=== PATIENT | female | born 1990 | race Caucasian/White ===

== ENCOUNTER → 2019-06-13 | Outpatient (CLI) | payer OTHER ==
[~2019-06-13] MED LIST: PREN-8 PO
== END ==
LOC: LABNPT 15:30
PROVIDERS: ATTEND Obstetrics & Gynecology
DX: O14.03 Mild to moderate pre-eclampsia, third trimester (principal)
CPT/HCPCS: 82570; 84156

== ENCOUNTER 2019-06-15 08:35 | Outpatient (CLI) | payer OTHER ==
[~2019-06-15] VITALS: Ht 170.2 cm; Wt 89.5 kg
[2019-06-15] MEDS ORDERED: PREN-8 PO (12:58)
== END 2019-06-15 13:14 | disposition home or self-care (01) ==
LOC: PREOP 08:35
PROVIDERS: ATTEND Obstetrics & Gynecology
DX: Z01.818 Encounter for other preprocedural examination (principal)

== ENCOUNTER 2019-06-19 09:12 | Inpatient (IN) | payer OTHER ==
[~2019-06-19] VITALS: Ht 170 cm; Wt 87.8 kg
[2019-06-19] VITALS (8 sets, daily range): BP systolic 102–144; BP diastolic 53–84
--- NOTE | 2019-06-19 10:00 | NUR ---
RAFAEL BLANCA presented to unit via ambulation from home, accompanied by , for section for breech position. RAFAEL BLANCA weighed, gowned, voided, and to bed. EFHM and TOCO applied, VS taken. RAFAEL BLANCA oriented to bed controls, call light, TV, heat, and A/C controls.
[2019-06-19] MEDS ORDERED: LACTATED RINGERS 1,000 ML IV ONE (10:13)
--- OUTSIDE RECORDS SUMMARY | 2019-06-19 10:24 | XMS REPORT | Continuity of Care Document ---
Author Organization Unknown Address Unknown Phone Unavailable Allergies Active Description Code Type Severity Reaction Onset Reported/Identified Relationship to Patient Clinical Status Yes No Known Drug Allergies [id number] Drug Allergy Unknown N/A 06/15/2019 Medications There is no data. Problems Date Dx Coded Attending Type Code Diagnosis Diagnosed By 06/14/2019 KATY MEDEIROS, KEHINDE Marvin Ot O14.03 MILD TO MODERATE PRE-ECLAMPSIA, THIRD TR 06/14/2019 KATY MEDEIROS, KEHINDE Marvin Ot O14.03 MILD TO MODERATE PRE-ECLAMPSIA, THIRD TR 06/15/2019 KATY MEDEIROS, KEHINDE Marvin Ot O14.03 MILD TO MODERATE PRE-ECLAMPSIA, THIRD TR 06/15/2019 KATY MEDEIROS, KEHINDE Marvin Ot O14.03 MILD TO MODERATE PRE-ECLAMPSIA, THIRD TR 06/15/2019 KATY MEDEIROS, KEHINDE Marvin Ot Z01.818 ENCOUNTER FOR OTHER PREPROCEDURAL EXAMIN Procedures There is no data. Results Test Result Range Urine protein/creatinine mass ratio - 15:30 Urine protein measurement (mass/volume) 18 mg/dL 6-12 Urine creatinine measurement (mass/volume) 93 mg/d L 30-125 Urine protein/creatinine mass ratio 0.19 NRG Encounters ACCT No. Visit Date/Time Discharge Status Pt. Type Provider Facility Loc./Unit Complaint [id number] 05/10/2019 09:17:10 05/10/2019 23:59: 59 [facility] Outpatient Monty Arroyo [id number] 08/30/2018 09:05:18 08/30/2018 23:59: 59 [facility] Outpatient Monty Arroyo [id number] 07/18/2018 09:33:53 07/18/2018 23:59: 59 [facility] Outpatient Monty Arroyo [id number] 06/11/2018 12:37:08 06/11/2018 23:59: 59 [facility] Outpatient Dylon Perezmy Chica [id number] 02/10/2018 14:59:52 02/10/2018 23:59: 59 [facility] Outpatient HetlingerMonty [id number] 09/13/2017 10:05:38 09/13/2017 23:59: 59 [facility] Outpatient Chantel Gabriel [id number] 02/24/2017 11:19:18 02/24/2017 23:59: 59 [facility] Outpatient HetlingerMonty [id number] 10/08/2016 09:10:12 10/08/2016 23:59: 59 [facility] Outpatient HetlingerMonty [id number] 09/25/2016 11:59:36 09/25/2016 23:59: 59 [facility] Outpatient HetlingerMonty [id number] 09/04/2016 10:05:48 09/04/2016 23:59: 59 [facility] Outpatient HetlingerMonty [id number] 03/18/2016 10:01:36 03/18/2016 23:59: 59 [facility] Outpatient HetlingerMonty [id number] 03/06/2016 12:18:07 03/06/2016 23:59: 59 [facility] Outpatient Chantel Gabriel [id number] 03/04/2016 17:21:28 03/04/2016 23:59: 59 [facility] Outpatient Cem Burnham [id number] 03/02/2016 15:28:46 03/02/2016 23:59: 59 [facility] Outpatient Chantel Gabriel [id number] 12/16/2015 12:32:11 12/16/2015 23:59: 59 [facility] Outpatient HetlingerMonty [id number] 11/08/2015 09:52:48 11/08/2015 23:59: 59 [facility] Outpatient Hetlinger Monty [id number] 10/07/2015 17:31:45 10/07/2015 23:59: 59 [facility] Outpatient Cem Burnham [id number] 06/03/2015 15:20:46 06/03/2015 23:59: 59 [facility] Outpatient Hetlinger Monty [id number] 04/09/2015 16:38:57 04/09/2015 23:59: 59 [facility] Outpatient HetlingerMonty [id number] 02/05/2015 16:58:38 02/05/2015 23:59: 59 [facility] Outpatient Cem Burnham [id number] 11/29/2014 09:47:13 11/29/2014 23:59: 59 [facility] Outpatient Chantel Gabriel [id number] 11/05/2014 22:26:44 11/05/2014 23:59: 59 [facility] Outpatient ChachaCem [id number] 11/05/2014 22:05:56 11/05/2014 23:59: 59 [facility] Outpatient Frandy Peoples Monty [id number] 06/26/2014 14:52:42 06/26/2014 23:59: 59 [facility] Outpatient BurnhamCem [id number] 04/17/2014 09:13:47 04/17/2014 23:59: 59 [facility] Outpatient Cem Burnham [id number] 12/28/2013 16:05:46 12/28/2013 23:59: 59 [facility] Outpatient Lon Marroquin [id number] 12/14/2013 16:08:10 12/14/2013 23:59: 59 [facility] Outpatient DelfinaMonty castro [id number] 10/09/2013 10:04:26 10/09/2013 23:59: 59 [facility] Outpatient Delfinaalojin Monty [id number] 07/10/2013 16:05:29 07/10/2013 23:59: 59 [facility] Outpatient DelfinaMonty castro [id number] 04/18/2013 09:50:34 04/18/2013 23:59: 59 [facility] Outpatient Dina Monty [id number] 06/15/2019 08:35:00 020 13:14:00 DIS Outpatient KEHINDE BURNS MD [facility] PREOP BREECH [id number] 06/13/2019 15:30:00 020 23:59:59 C[facility] Outpatient KEHINDE BURNS MD [facility] LABNPT [id number] 06/19/2019 12:00:00 P EN Preadmit KEHINDE BURNS MD
--- NOTE | 2019-06-19 10:30 | NUR ---
Preparing for OR. IV started. See intervention. Contractions every 5-6 min, 100 sec long, mild to palpation. FHT 140-150 baseline, mod variability, accels noted. No decels. Consent obtained. Preop teaching done.
[2019-06-19] MEDS ORDERED: FAMOTIDINE 20MG/2ML IV (PEPCID) IV ONE (11:00)
[2019-06-19] MEDS ORDERED: ceFAZolin 2 GM IV Premixed 50 ML IV ONE (11:00)
[2019-06-19] MEDS ORDERED: METOCLOPRAMIDE INJ 10 MG/2 ML (REGLAN) IV ONE (11:00)
[2019-06-19] MEDS ORDERED: metroNIDAZOLE 500MG/100ML IVPB 100 ML IV ONE (11:00)
[2019-06-19] MEDS ORDERED: LACTATED RINGERS 1,000 ML IV SCH ×2 (11:00)
[2019-06-19] MEDS ORDERED: CITRIC ACID/SOB CIT (BICITRA) 30 ML UDC PO ONE (11:00)
--- NOTE | 2019-06-19 11:00 | NUR ---
Anesthesia here, talking with patient.
[2019-06-19 11:06] LABS: BASOPHILS % (AUTO) 0 % (0-10); EOSINOPHILS # (AUTO) 0.1 10^3/uL (0.0-0.3); EOSINOPHILS % (AUTO) 1 % (0-10); HEMATOCRIT 41 % (35-52); HEMOGLOBIN 13.7 G/DL (11.5-16.0); LYMPHOCYTES # (AUTO) 1.7 X 10^3 (1.0-4.0); LYMPHOCYTES % (AUTO) 17 % (12-44); MEAN CORPUSCULAR HEMOGLOBIN 30 PG (25-34); MEAN CORPUSCULAR HGB CONC 34 G/DL (32-36); MEAN CORPUSCULAR VOLUME 89 FL (80-99); MEAN PLATELET VOLUME 10.4 FL (7.4-10.4); MONOCYTES # (AUTO) 0.7 X 10^3 (0.0-1.0); MONOCYTES % (AUTO) 7 % (0-12); NEUTROPHILS # (AUTO) 7.6 X 10^3 (1.8-7.8); NEUTROPHILS % (AUTO) 75 % (42-75); PLATELET COUNT 198 10^3/uL (130-400); RED CELL DISTRIBUTION WIDTH 13.3 % (10.0-14.5); WHITE BLOOD COUNT 10.1 10^3/uL (4.3-11.0)
[2019-06-19] MEDS ORDERED: ceFAZolin 2 GM IV Premixed 50 ML ONE (11:10)
[2019-06-19] MEDS ORDERED: metroNIDAZOLE 500MG/100ML IVPB 100 ML ONE (11:10)
[2019-06-19] MEDS ORDERED: ONDANSETRON 4 MG/2 ML (SDV) Z0FRAN ONE (11:10)
[2019-06-19] MEDS ORDERED: fentaNYL INJECTION 100 MCG/2 ML AMP ONE (11:11)
[2019-06-19] MEDS ORDERED: OXYTOCIN PRE-MIX DRIP 1,000 ML IV ONE (11:14)
--- NOTE | 2019-06-19 11:20 | NUR ---
Pre op meds given
[2019-06-19] MEDS ORDERED: OXYTOCIN PRE-MIX DRIP 500 ML IV SCH (11:27)
[2019-06-19] MEDS ORDERED: D5 LR IV SOLUTION 1,000 ML IV SCH (11:27)
--- NOTE | 2019-06-19 11:27 | History & Physical ---
History and Physical Date Seen by Provider: Jun 19, 2019 Time Seen by Provider: 11:25 This patient is a 28-year-old 1 white female with a due date of June 26, 2019 percent now at 39 weeks gestation with a breech presentation. She is a dmitted now for primary delivery secondary to the breech presentation. Her GBS culture done after 35 weeks gestation was negative. She denies rupture membranes or bleeding. She's had no other problems with this . Allergies none Medications are vitamins Medical social and surgical histories are per the antepartum record HEENT exam is normal Neck is no lymphadenopathy no thyromegaly Abdomen is gravid soft nontender nondistended Extremities show no clubbing cyanosis. There is no Homans sign. Pelvic exam is deferred Laboratory Tests 06/19/19 10:45 Assessment and plan term at 39 weeks' gestation with breech presentation. Patient is admitted now for primary delivery. Surgical risk complication recovering follow-up have been fluids us. Patient is ready to proceed. 39 weeks gestation with breech presentation Allergies and Home Medications Allergies Coded Allergies: No Known Drug Allergies (Unverified , 06/15/19) Home Medications Vit W-Ca,Fe,FA(<1 mg) 1 Each Tablet, 1 EACH PO DAILY, (Reported) Patient Home Medication List Home Medication List Reviewed: Yes KEHINDE BURNS MD Jun 19, 2019 11:27
[2019-06-19] MEDS ORDERED: TETANUS,DIPTH,PERTUSS P/F (BOOSTRIX) 0.5 ML VIAL IM ONE (11:30)
[2019-06-19] MEDS ORDERED: ONDANSETRON 4 MG/2 ML (SDV) Z0FRAN IVP PRN (11:30)
[2019-06-19] MEDS ORDERED: MEASLES,MUMPS,RUBELLA 1 EA INJ SC ONE (11:30)
[2019-06-19] MEDS ORDERED: DCS100C PO (11:31)
[2019-06-19] MEDS ORDERED: IBUP-1780 PO (11:31)
[2019-06-19] MEDS ORDERED: OXYC1TAB12 PO (11:31)
--- NOTE | 2019-06-19 11:31 | Discharge Inst-Surgical ---
Discharge Inst-Surgical Depart Medication/Instructions New, Converted or Re-Newed RX: RX on Chart Consults/Follow Up Patient Instructions: As directed Orders & Referrals Follow Up Appt: RTC 1 week for incision check. Call to make follow up appt. for patient in 4 weeks. Wound Care: Remove german, apply benzoin and steri strips. Activity Per routine post instructions. Please call in RX to patient pharmacy. Diet as tolerated Patient may shower or tub bathe as desired. Continue home meds Activity Activity as Tolerated: No Diet Discharge Diet: No Restrictions KEHINDE BURNS MD Jun 19, 2019 11:31
--- NOTE | 2019-06-19 11:33 | NUR ---
TRAVIS reyes. Surgery personnel in room. Ambulatory to OR.
[2019-06-19] MEDS ORDERED: METHYLERGONOVINE 0.2 MG/ML (METHERGINE) AMP ONE (12:00)
[2019-06-19] MEDS ORDERED: BUPIVACAINE 0.5% 30 ML (SENSORCAINE) VIAL ONE (12:19)
[2019-06-19] MEDS: KETOROLAC 30 MG/ML VIAL IVP SCH ×2 (13:48→20:20)
--- NOTE | 2019-06-19 14:07 | OPERATIVE REPORT ---
DATE OF SERVICE: 06/19/2019 PREOPERATIVE DIAGNOSIS: Term at 39 weeks' gestation with breech presentation. 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 OPERATIVE PROCEDURE: Primary low transverse delivery of a viable male infant with Apgars of 8 and 9 at 1 and 5 minutes respectively, weight of 7 pounds 8 ounces. Cord blood gas of 7.35 and a time of 11:54. OPERATIVE DESCRIPTION: With the patient in supine position under satisfactory spinal analgesia, she was repositioned in dorsal lithotomy position and prepped and draped in the usual fashion for abdominal surgery. Grimaldo catheter was placed in the urinary bladder. A Pfannenstiel incision was made through the skin with scalpel, the patient's abdomen entered in the usual manner. Bladder retractor placed into position. Clean scalpel used to make a 4 cm hysterotomy incision transversely across the lower uterine segment. A vigorous viable male was delivered by breech extraction from a double footling breech presentation. The was bulb suctioned on delivery. Umbilical cord was doubly clamped and cut and the passed to the pediatric nurse in attendance for delivery. Cord bloods were obtained. The placenta delivered spontaneously Miller. It was normal with a 3-vessel cord. The uterus was exteriorized, anterior wiped clean with a wet laparotomy sponge. Uterine incision closed with a running locked suture of 2-0 Vicryl. Hemostasis was satisfactory. The uterus was little bit boggy, but the bleeding had been fairly minimal. The uterus was oriented towards the patient's left side. There was no obvious round ligament nor fallopian tube from the uterus. 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 The left tube and ovary were normal. There was a mass on the right pelvic sidewall, suspicious for the ovary, but it seemed to be involved with and may be underlying the a portion of the round ligament. It was not exposed to the peritoneal cavity. There was approximately 1.5 x 3 cm nodular mass in the area that the ovary should have been found. No fimbria were identified. The blood clot and debris was removed from the abdominal cavity. The uterus was returned to abdominal cavity. Sponge and needle counts correct and hemostasis now assured. The anterior parietal peritoneum was closed with running suture of 2-0 Vicryl. Rectus muscles were closed with that suture as well. The rectus fascia was closed with 2-0 Vicryl, subcutaneous tissue was closed with 2-0 Vicryl and the skin was stapled. Sponge and needle counts were correct on completion of the procedure. Estimated blood loss was around 500 mL. The patient tolerated the procedure well and was transferred to the recovery room in stable condition. The infant had been taken stable to the full term nursery under the care of the pediatric nurse. Job ID: [id number] DocumentID: [id number] Dictated Date: 06/19/2019 12:47:54 Park Interpretive Ranger Date: 06/19/2019 14:07:02 Dictated By: KEHINDE BURNS MD
--- NOTE | 2019-06-19 15:30 | NUR ---
VSS. Pad changed x 1 with moderate rubra. FF @ u. No urge to void yet. Minimal pain.
[2019-06-19] MEDS: oxyCODONE/APAP 10/325MG (PERCOCET 10) TABLET PO PRN (16:48)
[2019-06-19] MEDS: DOCUSATE SODIUM 100 MG (COLACE) CAP PO SCH (20:20)
[2019-06-19] MEDS ORDERED: DOCUSATE SODIUM 100 MG (COLACE) CAP PO SCH (21:00)
[2019-06-20 00:02] VITALS: BP 115/74
[2019-06-20] MEDS: oxyCODONE/APAP 10/325MG (PERCOCET 10) TABLET PO PRN ×5 (00:02→21:04)
[2019-06-20] MEDS: KETOROLAC 30 MG/ML VIAL IVP SCH (02:08)
[2019-06-20 04:10] VITALS: BP 119/74
[2019-06-20] MEDS ORDERED: IBUPROFEN 800 MG (MOTRIN) TAB PO ONE (07:49)
--- NOTE | 2019-06-20 08:00 | NUR ---
DR. BURNS HERE TO SEE PT.
--- NOTE | 2019-06-20 08:02 | Progress Note ---
Standard Progress Note Progress Notes/Assess & Plan Date Seen by a Provider: Jun 20, 2019 Time Seen by a Provider: 08:01 Progress/Assessment & Plan This patient is without complaint. She is ambulating, voiding, tolerating oral intake well and has good pain control. Patient denies chest pain, denies shortness of breath, denies nausea vomiting, and denies headache. Vital Signs Date Time Temp Pulse Resp B/P (MAP) Pulse Ox O2 Delivery O2 Flow Rate FiO2 06/20/19 04:10 36.4 60 18 119/74 (89) 100 Room Air 06/20/19 00:02 36.3 59 18 115/74 (88) 99 Room Air 06/19/19 20:20 36.5 56 18 113/53 (73) 98 Room Air 06/19/19 14:25 37.0 62 16 131/76 (94) 99 Room Air 06/19/19 13:15 37 16 144/73 (96) 99 Room Air 06/19/19 13:15 Room Air 06/19/19 13:00 Room Air 06/19/19 13:00 36.6 16 103/65 (78) 100 Room Air 06/19/19 12:45 36.7 16 129/63 (85) 100 Room Air 06/19/19 12:45 Room Air 06/19/19 12:35 36.6 16 102/65 (77) 100 Room Air 06/19/19 12:21 Room Air 06/19/19 12:21 36.4 16 117/70 (86) 99 Room Air 06/19/19 10:30 36.5 77 18 100 Room Air I & O 06/20/19 07:00 Intake Total 3800 ml Output Total 2250 ml Balance 1550 ml Vital signs are stable. Patient is afebrile. Fundus is firm below the umbilicus and nontender. Incision is clean dry and intact. Extremities show no clubbing cyanosis. There is no Homans sign. Assessment and plan postoperative day number 1 status post primary delivery at 39 weeks gestation due to breech presentation. Patient is doing well and will have routine convalescence care KEHINDE BURNS MD Jun 20, 2019 08:02
--- NOTE | 2019-06-20 08:45 | NUR ---
A.M. ASSESSMENT COMPLETED. DOING WELL. CARING FOR IN ROOM.
[2019-06-20] MEDS: IBUPROFEN 800 MG (MOTRIN) TAB PO SCH ×3 (08:55→21:04)
[2019-06-20] MEDS: DOCUSATE SODIUM 100 MG (COLACE) CAP PO SCH ×2 (09:00→21:03)
--- NOTE | 2019-06-20 09:43 | Anesthesia-Regional Post-Op ---
Regional Patient Condition Mental Status: Alert, Oriented x3 Circulation: Same as Pre-Op Headache: Absent Sensation: Full Recovery Motor Block: Absent Post Op Complications Complications None Follow Up Care/Instructions Patient Instructions None needed. Anesthesia/Patient Condition Patient is doing well, no complaints, stable vital signs, no apparent adverse anesthesia problems. No complications reported per nursing. ANDRZEJ ESCOBEDO CRNA Jun 20, 2019 09:43
--- NOTE | 2019-06-20 09:45 | NUR ---
RT NOTIFIED OF PT NEEDING INCENTIVE SPIROMETRY.
--- NOTE | 2019-06-20 11:48 | NUR ---
PERCOCET 1 TAB P.O. FOR C/O ABD PAIN WITH CRAMPING.
--- NOTE | 2019-06-20 12:30 | NUR ---
CONTINUES TO DO WELL. S.O. AT BEDSIDE. WITHOUT PROBLEMS. HAS BEEN IN TO SEE PT.
--- NOTE | 2019-06-20 13:30 | NUR ---
AMBULATING IN THE HALLWAY. MOVES WELL.
--- NOTE | 2019-06-20 15:00 | NUR ---
REPORT GIVEN TO Oj HOOPER RN.
[2019-06-20 15:40] VITALS: BP 122/77
[2019-06-20 21:04] VITALS: BP 127/85
[2019-06-21 02:48] VITALS: BP 124/84
[2019-06-21] MEDS: IBUPROFEN 800 MG (MOTRIN) TAB PO SCH ×2 (02:48→08:34)
[2019-06-21] MEDS: oxyCODONE/APAP 10/325MG (PERCOCET 10) TABLET PO PRN ×2 (02:48→08:02)
--- NOTE | 2019-06-21 07:55 | NUR ---
DR. BURNS HERE TO SEE PT.
--- NOTE | 2019-06-21 07:59 | Progress Note ---
Standard Progress Note Progress Notes/Assess & Plan Date Seen by a Provider: Jun 21, 2019 Time Seen by a Provider: 07:57 Progress/Assessment & Plan This patient is without complaint. She is ambulating, voiding, tolerating oral intake well and has good pain control. Patient denies chest pain, denies shortness of breath, denies nausea vomiting, and denies headache. Vital Signs Date Time Temp Pulse Resp B/P (MAP) Pulse Ox O2 Delivery O2 Flow Rate FiO2 06/20/19 04:10 36.4 60 18 119/74 (89) 100 Room Air 06/20/19 00:02 36.3 59 18 115/74 (88) 99 Room Air 06/19/19 20:20 36.5 56 18 113/53 (73) 98 Room Air 06/19/19 14:25 37.0 62 16 131/76 (94) 99 Room Air 06/19/19 13:15 37 16 144/73 (96) 99 Room Air 06/19/19 13:15 Room Air 06/19/19 13:00 Room Air 06/19/19 13:00 36.6 16 103/65 (78) 100 Room Air 06/19/19 12:45 36.7 16 129/63 (85) 100 Room Air 06/19/19 12:45 Room Air 06/19/19 12:35 36.6 16 102/65 (77) 100 Room Air 06/19/19 12:21 Room Air 06/19/19 12:21 36.4 16 117/70 (86) 99 Room Air 06/19/19 10:30 36.5 77 18 100 Room Air I & O 06/20/19 07:00 Intake Total 3800 ml Output Total 2250 ml Balance 1550 ml Vital signs are stable. Patient is afebrile. Fundus is firm below the umbilicus and nontender. Incision is clean dry and intact. Extremities show no clubbing cyanosis. There is no Homans sign. Assessment and plan postoperative day number 1 status post primary delivery at 39 weeks gestation due to breech presentation. Patient is doing well and will have routine convalescence care June 21, 2019 Patient is without complaint. She is ambulating, voiding, tolerating oral intake well has good pain control. Patient is requesting discharge home. Vital Signs Date Time Temp Pulse Resp B/P (MAP) Pulse Ox O2 Delivery O2 Flow Rate FiO2 3/25/20 02:48 36.2 66 18 124/84 (97) 100 Room Air 06/20/19 21:04 36.4 92 18 127/85 (99) 100 Room Air 06/20/19 15:40 36.1 72 18 122/77 (92) 100 Room Air 06/20/19 09:26 Room Air I & O 06/21/19 07:00 Intake Total 2920 ml Output Total 2000 ml Balance 920 ml Vital signs are stable. Patient is afebrile. The abdomen is benign. The fundus is firm below the umbilicus nontender. The surgical incision is clean dry and intact. Extreme show no clubbing cyanosis. There is no Homans sign. Assessment and plan postoperative day number 2 status post primary delivery at 39 weeks gestation secondary to breech presentation. Patient was found to have a left unicornuate uterus with rudimentary right horn and likely rudimentary right ovary. Patient will be discharged home with follow-up in clinic Final Diagnosis 39 week primary delivery KHEINDE BURNS MD Jun 21, 2019 07:59
[2019-06-21] MEDS: DOCUSATE SODIUM 100 MG (COLACE) CAP PO SCH (08:34)
[2019-06-21 08:36] VITALS: BP 143/70
--- NOTE | 2019-06-21 08:54 | NUR ---
VS OBTAINED. MEDS GIVEN PO; SEE EMAR FOR FURTHER. INITIAL SHIFT ASSESSMENT COMPLETED; SEE INTERVENTION FOR FURTHER. MARQUIS REMOVED. BENZOIN AND STERI STRIPS APPLIED. DISCHARGE PAPERS PROVIDED AND REVIEWED WITH PT, PT VERBALIZES UNDERSTANDING. NO QUESTIONS VOICED. PAPER SIGNED. RX AND FOLLOW UP APPOINTMENT CARDS PROVIDED AT THIS TIME. NO NEEDS VOICED. CALL LIGHT WITHIN REACH.
--- NOTE | 2019-06-21 09:30 | NUR ---
RXS CALLED INTO [facility] SPOKE WITH GAYLA MENDEZ.
--- NOTE | 2019-06-21 11:10 | NUR ---
PT DISCHARGED FROM -[facility] TO PERSONAL AUTO VIA W/C IN STABLE CONDITION ACC BY TIGRE, S/O AND Manas QIU RN.
== END 2019-06-21 11:10 | disposition home or self-care (01) | DRG 788 ==
LOC: LDRP 10:14
PROVIDERS: ADMIT Obstetrics & Gynecology; ATTEND Obstetrics & Gynecology
PROC: 10D00Z1 Extraction of Products of Conception, Low, Open Approach (ICD-10-PCS; principal; 2019-06-19 12:16)
DX: O64.8XX0 Obstructed labor due to other malposition and malpresentation, not applicable or unspecified (principal); O34.03 Maternal care for unspecified congenital malformation of uterus, third trimester; O35.1XX0 Maternal care for (suspected) chromosomal abnormality in fetus, not applicable or unspecified; Q50.01 Congenital absence of ovary, unilateral; Z37.0 Single live birth; Z3A.39 39 weeks gestation of pregnancy
CPT/HCPCS: 36415; 85025; 86850; 86900; 86901; 87081; 88307; 94664

== ENCOUNTER 2020-12-12 05:36 | Outpatient (CLI) | payer BC, OTHER ==
[~2020-12-12] VITALS: Ht 170.2 cm; Wt 90.0 kg
[~2020-12-12 05:36] MED LIST changes: +DCS100C PO; +IBUP-1780 PO; +OXYC1TAB12 PO
[2020-12-12] MEDS ORDERED: ONDA8TAB15 PO (12:57)
[2020-12-12] MEDS ORDERED: SERT-413 PO (12:57)
== END 2020-12-12 13:03 | disposition home or self-care (01) ==
LOC: PREOP 05:36
PROVIDERS: ATTEND Obstetrics & Gynecology
DX: Z01.818 Encounter for other preprocedural examination (principal)

== ENCOUNTER 2020-12-19 04:03 | Inpatient (IN) | payer BC, OTHER ==
[2020-12-19] VITALS (10 sets, daily range): BP systolic 106–132; BP diastolic 53–86
[~2020-12-19] VITALS: Ht 170.2 cm; Wt 90.2 kg
[~2020-12-19 04:03] MED LIST changes: -DCS100C PO; +DOCU-239 PO; +ONDA8TAB15 PO; +SERT-413 PO
[2020-12-19] MEDS ORDERED: ceFAZolin INJECTION 2,000 MG in WATER (STERILE) FOR INJECTION 10 ML IV ONE (06:30)
[2020-12-19] MEDS ORDERED: METOCLOPRAMIDE INJ 10 MG/2 ML (REGLAN) IV ONE (06:30)
[2020-12-19] MEDS ORDERED: D5 LR IV SOLUTION 1,000 ML IV SCH ×3 (06:30)
[2020-12-19] MEDS ORDERED: TETANUS,DIPTH,PERTUSS P/F (BOOSTRIX) 0.5 ML VIAL IM ONE (06:30)
[2020-12-19] MEDS ORDERED: fentaNYL INJ 100 MCG/2 ML AMP IVP PRN (06:30)
[2020-12-19] MEDS ORDERED: CITRIC ACID/SOB CIT (BICITRA) 30 ML UDC PO ONE (06:30)
[2020-12-19] MEDS ORDERED: MEASLES,MUMPS,RUBELLA 1 EA INJ SC ONE (06:30)
[2020-12-19] MEDS ORDERED: FAMOTIDINE 20MG/2ML IV (PEPCID) IV ONE (06:30)
[2020-12-19] MEDS ORDERED: metroNIDAZOLE 500MG/100ML IVPB 100 ML IV ONE (06:30)
[2020-12-19] MEDS ORDERED: LACTATED RINGERS 1,000 ML IV SCH ×2 (06:30)
[2020-12-19] MEDS ORDERED: ONDANSETRON 4 MG/2 ML (SDV) Z0FRAN IVP PRN (06:30)
[2020-12-19] MEDS ORDERED: OXYTOCIN PRE-MIX DRIP 1,000 ML IV ONE (07:02)
[2020-12-19] MEDS ORDERED: fentaNYL INJ 100 MCG/2 ML AMP ONE (07:02)
[2020-12-19 07:03] LABS: BASOPHILS % (AUTO) 0 % (0-10); EOSINOPHILS # (AUTO) 0.1 10^3/uL (0.0-0.3); EOSINOPHILS % (AUTO) 1 % (0-10); HEMATOCRIT 37 % (35-52); HEMOGLOBIN 12.1 g/dL (11.5-16.0); LYMPHOCYTES # (AUTO) 1.9 10^3/uL (1.0-4.0); LYMPHOCYTES % (AUTO) 20 % (12-44); MEAN CORPUSCULAR HEMOGLOBIN 30 pg (25-34); MEAN CORPUSCULAR HGB CONC 33 g/dL (32-36); MEAN CORPUSCULAR VOLUME 90 fL (80-99); MEAN PLATELET VOLUME 10.4 fL (9.0-12.2); MONOCYTES # (AUTO) 0.8 10^3/uL (0.0-1.0); MONOCYTES % (AUTO) 9 % (0-12); NEUTROPHILS # (AUTO) 6.4 10^3/uL (1.8-7.8); NEUTROPHILS % (AUTO) 70 % (42-75); PLATELET COUNT 158 10^3/uL (130-400); WHITE BLOOD COUNT 9.2 10^3/uL (4.3-11.0)
--- NOTE | 2020-12-19 07:12 | History & Physical ---
History and Physical Date Seen by Provider: Dec 19, 2020 Time Seen by Provider: 07:10 30-year-old female currently at 39 weeks gestation. She presents with history of previous at 39 weeks gestation. She also is jose d every 2 minutes.She denies rupture membranes or bleeding. She has had no other problems with this . She does have an umbilical hernia that has been symptomatic and progressive during the Allergies are none Medications are vitamins Medical social and surgical history is all per the antepartum record HEENT exam is normal Neck is supple no lymphadenopathy no thyromegaly Abdomen is gravid soft nontender nondistended There is a obvious umbilical hernia of approximately 3 cm Extremities show no clubbing or cyanosis. There is no Homans' sign. Pelvic exam is deferred Assessment and plan Term at 39 weeks gestation presenting in labor for scheduled repeat delivery and umbilical herniorrhaphy.Surgical risk complications recovery and follow-up have been fully discussed. Patient is ready to proceed with her delivery 39-week gestation previous Allergies and Home Medications Allergies Coded Allergies: No Known Drug Allergies (Unverified , 06/15/19) Patient Home Medication List Home Medication List Reviewed: Yes Ondansetron HCl (Ondansetron HCl) 8 Mg Tablet, 8 MG PO Q6H PRN for NAUSEA/VOMITING, (Reported) Entered as Reported by: ZENAIDA SAM on 12/12/20 1257 Last Action: Reviewed Vit W-Ca,Fe,FA(<1 mg) ( Formula) 1 Each Tablet, 1 EACH PO DAILY, (Reported) Entered as Reported by: ZENAIDA SAM on 06/15/19 1258 Last Action: Reviewed Sertraline HCl (Sertraline HCl) 50 Mg Tablet, 50 MG PO HS, (Reported) Entered as Reported by: ZENAIDA SAM on 12/12/20 1257 Last Action: Reviewed Discontinued Medications Docusate Sodium (Dok) 100 Mg Capsule, 100 MG PO BID Discontinued Reason: No Longer Taking Prescribed by: KEHINDE MARTINEZ on 06/19/19 1131 Ibuprofen (Ibuprofen) 800 Mg Tablet, 800 MG PO Q6H PRN for PAIN Discontinued Reason: No Longer Taking Prescribed by: KEHINDE MARTINEZ on 06/19/19 1131 Oxycodone HCl/Acetaminophen (Percocet 10-325 mg Tablet) 1 Each Tablet, 1 TAB PO Q4H PRN for PAIN-MODERATE Discontinued Reason: No Longer Taking Prescribed by: KEHINDE MARTINEZ on 06/19/19 113 KEHINDE BURNS MD Dec 19, 2020 07:12
[2020-12-19] MEDS ORDERED: DOCU-239 PO (07:14)
[2020-12-19] MEDS ORDERED: OXYC1TAB12 PO (07:14)
[2020-12-19] MEDS ORDERED: IBUP-1780 PO (07:14)
--- NOTE | 2020-12-19 07:16 | Discharge Inst-Surgical ---
Discharge Inst-Surgical Depart Medication/Instructions New, Converted or Re-Newed RX: RX on Chart Consults/Follow Up Patient Instructions: As directed Orders & Referrals Follow Up Appt: RTC 1 week for incision check. Call to make follow up appt. for patient in 4 weeks. Wound Care: Remove german, apply benzoin and steri strips. Activity Per routine post instructions. Diet as tolerated Patient may shower or tub bathe as desired. Continue home meds Activity Activity as Tolerated: No Diet Discharge Diet: No Restrictions KEHINDE BURNS MD Dec 19, 2020 07:16
[2020-12-19] MEDS ORDERED: BUPIVACAINE 0.5% 30 ML (SENSORCAINE) VIAL ONE (07:55)
[2020-12-19] MEDS ORDERED: ceFAZolin 2 GM IV Premixed 50 ML IV ONE (08:00)
[2020-12-19] MEDS ORDERED: DOCUSATE SODIUM 100 MG (COLACE) CAP PO SCH (09:00)
--- NOTE | 2020-12-19 09:05 | OPERATIVE REPORT ---
DATE OF SERVICE: 12/19/2020 PREOPERATIVE DIAGNOSES: 1. Term in labor with previous and with umbilical hernia. 2. Unicornuate uterus. POSTOPERATIVE DIAGNOSES: 1. Term in labor with previous and with umbilical hernia. 2. Unicornuate uterus. OPERATIVE PROCEDURE: Repeat low transverse delivery of a viable female with Apgars of 8 and 9 at 1 and 5 minutes respectively, weight of 7 pounds 9 ounces. time of 7:35 and a cord blood pH of 7.32 as well as umbilical herniorrhaphy. OPERATIVE DESCRIPTION: With the patient in supine position under satisfactory spinal analgesia, she was prepped and draped in the usual fashion for abdominal surgery. Grimaldo catheter was placed in the urinary bladder. A repeat Pfannenstiel incision was made through skin with a scalpel by removing the patient's previous Pfannenstiel incisional skin scar. The abdomen was then entered in the usual manner. Bladder retractor placed in position, clean scalpel used to make a 4 cm hysterotomy incision transversely across the lower uterine segment. There was a large window comprised of membranes and peritoneum approximately 10 cm transversely and 4 cm vertically. The opening was made at the superior edge of this. Thick meconium fluid was released on hysterotomy. A vigorous viable female was delivered via the uterine incision in the usual manner. Infant was bulb suctioned on delivery of the head and again on completion of delivery. The umbilical cord was doubly clamped and cut, and the infant passed to the pediatric nurse in attendance for delivery. Cord bloods were obtained. The placenta delivered spontaneously Miller. It was normal with a 3-vessel cord. The uterus was exteriorized and interior wiped clean with a wet laparotomy sponge. Uterine incision closed with a running locked suture of 2-0 Vicryl. Hemostasis was complete. This was a left unicornuate uterus. The uterus was returned to abdominal cavity. All blood clot and debris removed from the abdominal cavity. Sponge and needle counts correct, hemostasis assured. Anterior parietal peritoneum was closed with running suture of 2-0 Vicryl. Rectus muscles were closed with that suture as well. The rectus fascia was closed with 2-0 Vicryl and subcutaneous tissue was closed with 2-0 Vicryl and the skin was stapled. The umbilicus was exposed. An incision was made transversely across the base of the umbilicus. The skin was dissected off of the underlying fascia. There was a 1 cm defect in the fascia, constituting the umbilical hernia. The fascia was freed completely circumferentially under the incision and then a suture of 2-0 Vicryl was used to reapproximate the fascia in a running locked fashion. This obliterated the hernia and restored the abdominal wall. The skin was then stapled, and sterile dressing applied. Sponge and needle counts were correct on completion of the procedure. Blood loss was around 500 mL. The patient tolerated the procedure well and was transferred to the recovery room in stable condition. The had been taken stable to the full term nursery under the care of the pediatric nurse. Job ID: [id number] DocumentID: [id number] Dictated Date: 12/19/2020 08:17:55 Eyeglass Inspector Date: 12/19/2020 09:05:25 Dictated By: KEHINDE BURNS MD MTDD
[2020-12-19] MEDS: KETOROLAC 30 MG/ML VIAL IVP SCH ×3 (09:10→22:01)
[2020-12-19] MEDS: OXYTOCIN PRE-MIX DRIP 500 ML IV SCH ×2 (09:27→13:28)
[2020-12-19] MEDS: DOCUSATE SODIUM 100 MG (COLACE) CAP PO SCH ×2 (11:51→19:59)
[2020-12-19] MEDS: oxyCODONE/APAP 10/325MG (PERCOCET 10) TABLET PO PRN ×3 (11:52→22:02)
[2020-12-19] MEDS: IBUPROFEN 800 MG (MOTRIN) TAB PO SCH (16:18)
[2020-12-20 04:00] VITALS: BP 124/60
[2020-12-20] MEDS: IBUPROFEN 800 MG (MOTRIN) TAB PO SCH (04:07)
[2020-12-20] MEDS ORDERED: DOCU-143 PO (07:20)
[2020-12-20] MEDS ORDERED: [UNRECOGNIZED DRUG - OTHER] (07:20)
[2020-12-20] MEDS ORDERED: IBUP-1780 PO (07:20)
[2020-12-20] MEDS ORDERED: OXYC1TAB12 PO (07:20)
--- NOTE | 2020-12-20 07:38 | Progress Note ---
Standard Progress Note Progress Notes/Assess & Plan Date Seen by a Provider: Dec 20, 2020 Time Seen by a Provider: 07:37 Progress/Assessment & Plan This patient is without complaint. She is ambulating, voiding, pain control. Patient is requesting discharge home as her baby was transferred to [facility] NICU. Patient reports that the baby is doing well in the NICU Vital Signs Date Time Temp Pulse Resp B/P (MAP) Pulse Ox O2 Delivery O2 Flow Rate FiO2 12/20/20 04:00 36.0 56 16 124/60 (81) 100 Room Air 12/19/20 23:30 36.1 70 18 106/53 (70) 98 Room Air 12/19/20 20:05 36.2 67 18 127/75 (92) 100 Room Air 12/19/20 17:45 36.4 72 18 126/71 (89) 99 Room Air 12/19/20 11:49 36.2 80 18 107/61 (76) 96 Room Air 12/19/20 11:45 Room Air 12/19/20 09:00 36.0 74 16 129/71 (90) 100 Room Air 12/19/20 09:00 36.0 16 129/71 (90) 100 Room Air 12/19/20 09:00 Room Air 12/19/20 08:45 Room Air 12/19/20 08:45 36.2 16 109/77 (88) 100 Room Air 12/19/20 08:29 Room Air 12/19/20 08:29 36.0 16 118/69 (85) 100 Room Air 12/19/20 08:11 Room Air 12/19/20 08:11 36.5 16 120/69 (86) 100 Room Air I & O 12/20/20 07:00 Intake Total 3250 ml Output Total 2600 ml Balance 650 ml Vital signs are stable. Patient is afebrile. The abdomen is benign. The surgical incision is clean dry and intact. The fundus is firm below the umbilicus and nontender. Show no clubbing or cyanosis. +. Assessment and plan Postoperative day #1 status post repeat delivery weeks gestation. Patient also had umbilical hernia repair. Patient will be discharged home with follow-up Final Diagnosis 39-week repeat delivery and umbilical herniorrhaphy KEHINDE BURNS MD Dec 20, 2020 07:38
[2020-12-20 07:49] VITALS: BP 133/64
[2020-12-20] MEDS: DOCUSATE SODIUM 100 MG (COLACE) CAP PO SCH (07:50)
[2020-12-20] MEDS: oxyCODONE/APAP 10/325MG (PERCOCET 10) TABLET PO PRN (07:50)
[2020-12-20] MEDS ORDERED: HYDROCORTISONE 2.5% CREAM (ANUSOL-HC) 30 GM TOP SCH (09:00)
--- NOTE | 2020-12-20 13:15 | Anesthesia-Regional Post-Op ---
Regional Post Op Complications Complications None Follow Up Care/Instructions Patient Instructions None needed. Anesthesia/Patient Condition Patient discharged prior to rounding. Chart reviewed. No apparent anesthetic complications noted. No complications reported per nursing. KEELEY CRAIN CRNA Dec 20, 2020 13:15
== END 2020-12-20 08:50 | disposition home or self-care (01) | DRG 788 ==
LOC: LDRP 06:06
PROVIDERS: ADMIT Obstetrics & Gynecology; ATTEND Obstetrics & Gynecology
PROC: 0WQF0ZZ Repair Abdominal Wall, Open Approach (ICD-10-PCS; 2020-12-19)
PROC: 10D00Z1 Extraction of Products of Conception, Low, Open Approach (ICD-10-PCS; principal; 2020-12-19 07:17)
DX: O65.5 Obstructed labor due to abnormality of maternal pelvic organs (principal); O34.211 Maternal care for low transverse scar from previous cesarean delivery; O99.62 Diseases of the digestive system complicating childbirth; K42.9 Umbilical hernia without obstruction or gangrene; Z3A.39 39 weeks gestation of pregnancy; Z37.0 Single live birth; O34.03 Maternal care for unspecified congenital malformation of uterus, third trimester; Q51.4 Unicornate uterus; O77.0 Labor and delivery complicated by meconium in amniotic fluid
CPT/HCPCS: 36415; 85025; 86850; 86900; 86901; 87081; 94664